=== PATIENT | male | born 2000 | race Caucasian/White ===

== ENCOUNTER 2024-12-13 13:42 | Emergency (ER) | payer OTHER ==
[~2024-12-13] VITALS: Ht 177.8 cm; Wt 72.6 kg
[2024-12-13] MEDS ORDERED: IBUP800 PO (15:08)
== END 2024-12-13 16:00 | disposition home or self-care (01) ==
LOC: ER 13:42
DX: S83.91XA Sprain of unspecified site of right knee, initial encounter (principal); W18.30XA Fall on same level, unspecified, initial encounter
CPT/HCPCS: 73562-RT; 99283-25